=== PATIENT | female | born 1995 | race Caucasian/White ===

== ENCOUNTER 2024-07-24 09:48 | Outpatient (CLI) | payer OTHER, SELFPAY ==
--- NOTE | ~2024-07-24 | US_ITS ---
EXAMINATION: US OB transvaginal DATE: 07/24/2024 10:16 INDICATION: Gestational dating TECHNIQUE: Real-time transvaginal obstetric ultrasound. FINDINGS: No prior studies for comparison. The uterus measures 8 x 5.2 x 6.2 cm. There is an intrauterine gestational sac with mean sac diameter of 2.7 cm corresponding to 7 week 5 day gestation. The yolk sac appears enlarged. No pole iden tified. No heart motions detected. No evidence of for subchorionic hemorrhage. Ovaries are not visualized. No free fluid in the pelvis. IMPRESSION: 1. Intrauterine gestational sac containing a yolk sac without pole. Mean sac diameter correspon ds to 7 week 5 day gestation. At this age a pole should be identifiable, suspicious for blighte d ovum/failed . Ectopic is unlikely although not excluded. Recommend correlation w ith serial quantitative beta-hCG levels and ultrasound as clinically indicated. Reviewed, dictated and finalized at location B. IMPRESSION: 1. Intrauterine gestational sac containing a yolk sac without pole. Mean sac diameter corresponds to 7 week 5 day gestation. At this age a pole sh ould be identifiable, suspicious for blighted ovum/failed . Ectopic pr egnancy is unlikely although not excluded. Recommend correlation with serial qu antitative beta-hCG levels and ultrasound as clinically indicated.
== END 2024-07-24 09:49 | disposition home or self-care (01) ==
LOC: MICIMG 09:51
PROVIDERS: PCP Advanced Practice Midwife; Visit Provider Advanced Practice Midwife
DX: Z36.87 Encounter for antenatal screening for uncertain dates (principal); Z3A.00 Weeks of gestation of pregnancy not specified
CPT/HCPCS: 76817

== ENCOUNTER 2024-07-31 02:24 | Day surgery (SDC) | payer OTHER, SELFPAY ==
[2024-07-30 09:50] VITALS: BMI 25.9
--- NOTE | 2024-07-30 09:51 | PC.NURSE ---
Report to the Outpatient Waiting Room, entrance under the green pavilion located off [facility], at time _1pm_ on date _[id number]_. Planned Procedure Time: _3pm_.? Time changes happen often and if your time is changed the preop area will call you the afternoon before. - You and your visitor will be asked to self-screen and do not enter if you have any COVID symptoms. Please call surgeon if you need to reschedule. - A mask is optional within the hospital at this time. Patients may have clear liquids (water, carbonated beverages, clear teas, apple juice) until 3 hours prior to surgery with a maximum of 20 ounces. - No food from midnight until time of surgery and no smoking Take only the following medications with a SIP of water on the morning of surgery: ___None____ DO NOT STOP ANY OF YOUR OTHER PRESCRIPTION MEDICATIONS PRIOR TO SURGERY EXCEPT THE FOLLOWING Medications to discontinue per physician ___All vitamins Date to take last dose____Stop now.____ Please no make-up, nail malawian, hairspray, perfume, deodorant, or body powder the day of surgery.? No jewelry (including any body piercings) or valuables the day of surgery, leave them at home.? Please take a shower or bath the night before, or the morning of, surgery with an antibacterial soap.? Wear comfortable, loose fitting clothing.? - Jewelry must be removed prior to entering the operating room.? Rings and piercings that are not removed may be cut off. - The hospital will not accept responsibility for valuables.? - Please leave all valuables, including medications, at home the day of surgery. If you are going home after surgery, a licensed petrol tanker driver must drive you home.? - NO public transportation without another adult if you receive anesthesia. - We recommend that an adult stay with you for 24 hours following discharge. - We also recommend that you do not drive, make important decision, drink alcoholic beverages, or take any drugs that were not prescribed by your health care provider for at least 24 hours after your discharge time. Follow any additional instructions given to you from your surgeon. Telephone instructions given to __Danzaida__and asked if any additional questions and then verbalized understanding. Patient advised to call surgeon office or pre surgery nurse liaison [phone] if any additional questions.
--- NOTE | 2024-07-31 13:16 | P.PNAN_ITS ---
Anes - Initial Pre Proc Eval Procedure: Operation Date: 07/31/24 15:00 Proposed Procedures p Suction Dilation and Curettage - Regina Austin MD Date/Time: 07/31/24 13:16 Surgeon: Regina Austin MD Pre Op Diagnosis: Missed Ab Patient Data Age: 28 Gender: F Height: 1.7 m Weight: 75 kg Allergies Allergy/AdvReac Type Severity Reaction Status Date / Time No Known Allergies Allergy Unverified 07/30/24 09:41 Home Medications Medication Instructions Recorded Confirmed Type multivitamin (Daily Multi-Vitamin 1 tablet PO DAILY 07/05/23 07/30/24 History tablet) Lactobacillus 40-Bifidobact 1 cap PO HS 07/30/24 07/30/24 History 3-S.thermophilus 100 billion cell capsule (Probiotic) diphenhydramine HCl 50 mg/30 mL 25 mg PO HS 07/30/24 07/30/24 History oral liquid pyridoxine (vitamin B6) 25 mg 25 mg PO DAILY 07/30/24 07/30/24 History tablet (Vitamin B-6) Patient hx anesthesia problems: none Family hx anesthesia problems: none Results Review: All pre-operative results and documents have been reviewed as part of the pre- operative evaluation. [facility] Past Medical History Medical History (Updated 07/31/24 @ 13:16 by Gurjit Dunlap MD) Missed ab Family History Family History Grandparent Breast cancer Hypertension Hyperlipemia Other Breast cancer Father Hyperlipemia Social History Social History Smoking status: Never smoker Alcohol intake: current Substance use: never Lack of Transportation: No Lack of Food: Never True Current Housing: I Have Housing Concerned About Future Housing: No Difficulty Paying Gas/Electric Bills: No Difficulty Paying for Meds: No Currently Unemployed: No Education: Bachelor's Degree Difficulty w/ Childcare or Family Care: No Living arrangements: with family Occupation/Education: occupation 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 Informed Consent: The patient's anesthetic plan and its attendant risks and benefits were discussed with the patient/family/POA. Questions were solicited and answers provided to the satisfaction of the patient/family/POA.
[2024-07-31 13:30] VITALS: BP 126/84; PULSE 96; RESP 16; TEMP 36.1; O2SAT 100
[2024-07-31] MEDS: LACTATED RINGERS 1,000 ML 30 ML IV CONT (13:30)
[2024-07-31] MEDS: ACETAMINOPHEN 500 MG TABLET 1000 MG PO (13:49)
--- NOTE | 2024-07-31 14:04 | WPDHPUPDATE1 ---
History and Physical Update Update Date/Time: 07/31/24 14:04 History and Physical has been reviewed, including an updated exam of the patient. There are NO changes in the patient's condition. Risks, benefits, and alternatives have been discussed and questions answered. Patient agrees to proceed with procedure.
--- NOTE | 2024-07-31 14:04 | PM.HPGS ---
History of Present Illness History of Present Illness Consent: Risks, benefits, and alternatives have been discussed and questions answered. Patient agrees to proceed with procedure. Chief complaint: Missed Ab Narrative: Kenna Dominguez is a 28 year old female They missed . yolk sac without pole is noted on the ultrasound measuring sac diameter of 7 weeks 5 days. The HCGs on the same date were 38,880 micro IU per mL. Repeat HCG 2 days later was down to 34,000. patient has had no vaginal bleeding. It was recommended to undergo D&C to evacuate the uterus. Risks of infection, bleeding, perforation, and retained products are reviewed. Patient voices understanding and agrees to proceed. Postoperative expectations are reviewed. Review of Systems Review of Systems: not repeated day of surgery; patient states no changes in status PMFSH Past Medical History Medical History (Updated 07/31/24 @ 14:06 by Regina Austin MD) Missed ab Current Surgical History Surgical History (Updated 07/31/24 @ 14:06 by Regina Austin MD) No significant past surgical history Family History Family History Grandparent Breast cancer Hypertension Hyperlipemia Other Breast cancer Father Hyperlipemia Social History Social History Smoking status: Never smoker Alcohol intake: current Substance use: never Lack of Transportation: No Lack of Food: Never True Current Housing: I Have Housing Concerned About Future Housing: No Difficulty Paying Gas/Electric Bills: No Difficulty Paying for Meds: No Currently Unemployed: No Education: Bachelor's Degree Difficulty w/ Childcare or Family Care: No Living arrangements: with family Occupation/Education: occupation 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- [employer] Spiritual care concerns: No Meds Home Medications and Allergies Home Medications Medication Instructions Recorded Confirmed Type multivitamin (Daily Multi-Vitamin 1 tablet PO DAILY 07/05/23 07/31/24 History tablet) Lactobacillus 40-Bifidobact 1 cap PO HS 07/30/24 07/31/24 History 3-S.thermophilus 100 billion cell capsule (Probiotic) diphenhydramine HCl 50 mg/30 mL 25 mg PO HS 07/30/24 07/31/24 History oral liquid pyridoxine (vitamin B6) 25 mg 25 mg PO DAILY 07/30/24 07/31/24 History tablet (Vitamin B-6) Allergies Allergy/AdvReac Type Severity Reaction Status Date / Time No Known Allergies Allergy Unverified 07/30/24 09:41 Vital Signs Vital Signs - 24 hr 07/31/24 13:30 Temperature 96.9 F L Pulse Rate 96 Respiratory Rate 16 Blood Pressure 126/84 Pulse Oximetry 100 Oxygen Delivery Room Air Exam Const: General: healthy appearing and alert Orientation/consciousness: patient oriented x3 Resp: Effort & Inspection: normal respiratory effort : External Female Exam: normal external appearance Speculum Exam - Vagina: normal appearance of the vagina and normal vaginal discharge Speculum Exam - Cervix: normal appearance of the cervix Bimanual exam- vagina & uterus: uterine size normal and consistency normal Bimanual Exam- Adnexa, other: normal adnexae and No adnexal tenderness Neuro: General: patient oriented x3 Assessment and Plan Assessment and plan (1) Missed ab: Code(s): O02.1 - Missed Status: Acute Assessment and Plan: plan to proceed with suction D&C
[2024-07-31] MEDS: LIDOCAINE HCL 1% LOCAL INJ 10 ML VIAL INFILTRATE (14:32)
--- NOTE | 2024-07-31 14:35 | P.OP_ITS ---
Procedure Note - Detailed Date of Procedure 07/31/24 Pre-op Diagnosis Missed Ab Post-op Diagnosis Same Procedure Performed suction D&C Surgeon Regina Austin MD Anesthesia MAC and Local Findings uterus sounds to 10cm with moderate products of conception Description of Procedure The patient is taken to the operating room and placed under anesthesia in the dorsal lithotomy position. She was prepped and draped usual sterile fashion. Woodside speculum was placed in the vagina and the cervix grasped on the anterior lip with tenaculum. The uterus is sounded to 10cm. The cervix was injected in each quadrant with 1% lidocaine. The cervix was then serially dilated with Hegar was to an 8. The 8mm curved suction curette is used to evacuate the uterus. Once no further products of conception were noted in the tubing, the suction curette was removed and the sharp curette was used to curette the endometrium. One additional pass with the suction curette was taken and no further products were noted in the tubing. All instruments were removed. Spo nge, needle, and instrument counts are correct per the OR staff. Patient was awakened from anesthesia and taken to recovery in stable condition. Estimated Blood Loss 50 ( 50cc total products of conception plus blood) Drains No Packing No Pathology Yes ( products of conception) Complications No immediate complications Condition Stable Disposition PACU
[2024-07-31 14:40] VITALS: BP 97/60; PULSE 66; RESP 14; O2SAT 96
[2024-07-31 15:10] VITALS: BP 101/60; PULSE 67; RESP 14; O2SAT 99
[2024-07-31 15:30] VITALS: BP 113/76; PULSE 60; RESP 14
[2024-07-31 16:00] VITALS: BP 108/77; PULSE 60; RESP 14
== END 2024-07-31 16:10 | disposition home or self-care (01) ==
PROVIDERS: PCP Student in an Organized Health Care Education/Training Program; Visit Provider Obstetrics & Gynecology Gynecology
PROC: (CPT 59820; principal; 2024-07-31 15:00)
DX: O02.1 Missed abortion (principal); Z80.3 Family history of malignant neoplasm of breast
CPT/HCPCS: 59820; 36415; 85461; 86850; 86900; 86901; 88305; A9270; J1885; J2003; J2250; J2704; J3010; J7120

== ENCOUNTER 2025-01-16 14:16 | Outpatient (CLI) | payer OTHER, SELFPAY ==
--- NOTE | ~2025-01-16 | US_ITS ---
EXAMINATION: US OB transvaginal DATE: 01/16/2025 16:35 CDT INDICATION: Right-sided pelvic pain COMPARISON: None TECHNIQUE: Real-time transvaginal obstetric ultrasound. FINDINGS: Last menstrual period is given as 12/13/2024 2 para 0 Estimated date of delivery by last menstrual period is 09/19/2025 The uterus measures 7.5 x 3.3 x 4.3 cm. The endometrial complex measures 5.6 mm. No gestational sac is identified within the uterus. The right ovary is unremarkable in echogenicity and size and measures 2.8 x 1.5 x 2.1 cm. The left ovary is unremarkable in echogenicity and size and measures 1.3 x 1.1 x 1.6 cm. IMPRESSION: Unremarkable sonographic evaluation of the female pelvis, as detailed above. No gestational sac is visualized. Reviewed, dictated and finalized at location A. IMPRESSION: Unremarkable sonographic evaluation of the female pelvis, as detail ed above. No gestational sac is visualized.
== END 2025-01-16 14:17 | disposition home or self-care (01) ==
PROVIDERS: PCP Student in an Organized Health Care Education/Training Program; Visit Provider Obstetrics & Gynecology Gynecology
DX: O36.80X0 Pregnancy with inconclusive fetal viability, not applicable or unspecified (principal); Z3A.00 Weeks of gestation of pregnancy not specified
CPT/HCPCS: 76817

== ENCOUNTER 2025-02-02 08:46 | Outpatient (CLI) | payer OTHER, SELFPAY ==
--- NOTE | ~2025-02-02 | US_ITS ---
FIRST TRIMESTER ULTRASOUND 02/02/2025 8:48 CDT Ordering provider: Regina Austin MD History: . inconclusive viability . Comparison: None. FINDINGS: INTRAUTERINE GESTATIONAL SAC: Present. Measures 0.9 cm which is equal to 5 weeks and 5 days. YOLK SAC: Not seen. POLE: Present. Measures 0.2 cm equal to 5 weeks and 5 days. Hypoechoic area seen adjacent to the gestational sac measuring 0.6 x 0.3 x 0.4 cm. UTERUS: The uterus measures in length which is within normal limits. No myometrial masses. FREE FLUID: None. OVARIES: Not seen. ADNEXAL MASSES: None. IMPRESSION: Intrauterine gestational sac with possible pole equal to 5 weeks and 5 days. Hypoechoic area adjacent to the gestational sac. This may be small hematoma. Follow-up advised. Reviewed, dictated and finalized at location A. IMPRESSION: Intrauterine gestational sac with possible pole equal to 5 weeks and 5 d ays. Hypoechoic area adjacent to the gestational sac. This may be small hematoma. Fo llow-up advised.
== END 2025-02-02 08:47 | disposition home or self-care (01) ==
LOC: MICIMG 08:46
PROVIDERS: PCP Obstetrics & Gynecology Gynecology; Visit Provider Obstetrics & Gynecology Gynecology
DX: O36.80X0 Pregnancy with inconclusive fetal viability, not applicable or unspecified (principal); Z3A.01 Less than 8 weeks gestation of pregnancy
CPT/HCPCS: 76817